=== PATIENT | male | born 2000 | race Caucasian/White ===

== ENCOUNTER 2022-10-31 21:19 | Emergency (ER) | payer OTHER, MEDICAID, SELFPAY ==
[2022-10-31 21:29] VITALS: BP 125/59; PULSE 67; RESP 16; TEMP 36.9; O2SAT 98; BMI 19.0
--- NOTE | 2022-10-31 22:03 | ED.BACK ---
HPI - Back Pain/Injury General Chief Complaint: Back Pain/Injury Stated Complaint: Neck and shoulder pain Time Seen by Provider: 10/31/22 22:03 Source: patient Mode of arrival: ambulatory Limitations: no limitations History of Present Illness HPI Narrative: 22-year-old male presents with a right neck and upper back muscle spasming after over reaching. Patient states that he has had intermittent muscle spasming to the right upper back over the past month. He does not report any traumatic injury or any significant physical exertion. MD elicited complaint: other (Muscle spasm) Onset (ago): day(s) (1) Timing: constant Severity: moderate Similar Symptoms Previously: Yes Quality: aching, spasming and throbbing Location: right upper back Radiation: neck Exacerbating factors: movement Relieving factors: other (Massage) Context: turning/twisting Associated symptoms: denies other symptoms Treatments prior to arrival: NSAIDS Work related injury: No Related Data Previous Rx's Medication Instructions Recorded cyclobenzaprine 10 mg tablet 10 mg PO TID PRN muscle spasm #10 10/31/22 tabs Allergies Allergy/AdvReac Type Severity Reaction Status Date / Time No Known Allergies Allergy Verified 10/31/22 22:14 Review of Systems Review of Systems: Constitutional: No Fever, No Chills Cardiovascular: No Chest Pain, No SOB Respiratory: No Cough, No Dyspnea Gastrointestinal: No Nausea, No Vomiting, No Diarrhea, No abdominal Pain Genitourinary: No Dysuria, No Hematuria Musculoskeletal: positive neck and upper back muscular spasming and pain, No Myalgias, No Joint Swelling Skin: No Skin lacerations, No rash Neuro: No Weakness, No Numbness, No Paresthesias, No Dizziness, No Headache Yes all other systems are reviewed and are negative [facility] Past Medical History Attestation statement: The following information was validated with the patient. Source: old records reviewed Social History Social History Advance Directives: No Advance Directives Information Provided: No Physical Exam Vital Signs: Vital Signs: Last Vital Signs Temp 98.4 F 10/31/22 21:29 Pulse 67 10/31/22 21:29 Resp 16 10/31/22 21:29 BP 125/59 L 10/31/22 21:29 Pulse Ox 98 10/31/22 21:29 O2 Del Method 10/31/22 21:29 BMI result Body Mass Index 19.0 Appearance: Alert. Oriented X3. No acute distress. Eyes: Pupils equal, round and reactive to light. ENT: Pharynx normal. Neck: Normal inspection. Neck supple. Palpable spasm to the trapezius and latissimus Dorsi. No vertebral tenderness or step-offs. Full range of motion to the neck. CVS: Normal heart rate and rhythm. Pulses normal. Respiratory: No respiratory distress. Breath sounds normal. Abdomen: Soft and nontender. Skin: Skin warm and dry. Normal skin color. Normal skin turgor. Extremities: No lower extremity edema. Full range of motion to all extremities. Neuro: No motor deficit. No sensory deficit. Cranial nerves 2-12 intact. Course Course Course Narrative: 22-year-old male presents with muscle spasming to the upper neck, and back. Has had similar episodes in the past. This spasming started when he was over reaching fixing his bed sheets. He has had spasming to the right upper back and neck in the past. He has been taking ibuprofen mild effect. Patient appears nontoxic, afebrile. Palpable spasming noted to the latissimus Rivera and trapezius on the right side. Patient does have full range of motion to all digits, extremities, and neck. Brisk capillary refill and equal pulses. Abdomen is soft nontender, chest wall no tenderness to palpation. Will treat with cyclobenzaprine. I did suggest supportive measures such as using a foam roller, myofascial release, massage therapy, and physical therapy. I did explain that these kinds of muscular skeletal spasming may take time to heal and may require multiple modalities for treatment. Patient verbalized understanding of and agrees to plan of care discharge home. Verbalized understanding of signs and symptoms indicating need for emergent intervention. Medications Administered Discontinued Medications Generic Name Dose Route Start Last Admin Trade Name Freq PRN Reason Stop Dose Admin Cyclobenzaprine HCl 10 mg 10/31/22 22:14 10/31/22 22:31 Cyclobenzaprine Hcl 10 Mg Tablet PO 10/31/22 22:15 10 mg ONCE ONE Administration Medical Decision Making Differential Diagnosis Differential Diagnoses: The differential diagnosis associated with the presentation includes Muscular muscle spasm Discharge Plan Discharge Clinical Impression: Muscle strain, Muscle spasm Patient Disposition: Home, Self-Care Instructions: Muscle Spasm (ED) Additional Instructions: You were evaluated for right trapezius muscle spasm. Please take cyclobenzaprine as needed for muscle spasms. This medication is a muscle relaxer, can delay reaction time, increased risk for falls, and cause drowsiness. Do not drive or operate machinery while taking this medication. Do not take this medication at the same time as Motrin. Alternate Tylenol 650 mg every 6 hours and Motrin 600 mg every 6 hours as needed for pain and fever management. Consider taking these medications 3 hours apart so you have pain and fever management every 3 hours. Write down what time you take these medications to prevent accidental overdose. If you notice any black or tarry stools stop Taking Motrin and present to the emergency department for evaluation. This is an indication of gastric bleeding. Use a foam roller, tennis ball, and or massage therapy to help release the muscle spasm. This will be painful, and will take time to resolve. May consider following up with primary care physician for physical therapy referral if symptoms continue to persist. Thank you for choosing this emergency department for evaluation. Please follow-up with primary care physician as needed. Return to the emergency department for any new, concerning, or worsening symptoms. Prescriptions: New cyclobenzaprine 10 mg tablet 10 mg PO TID PRN (Reason: muscle spasm) Qty: 10 0RF Stand Alone Forms: Work/School Release Interventions: ED Discharge Assessment Last Done: 10/31/22 22:34 Discharge Date/Time: 10/31/22 22:35
[2022-10-31] MEDS: Cyclobenzaprine HCl 10 MG TABLET PO (22:31)
== END 2022-10-31 22:35 | disposition home or self-care (01) ==
PROVIDERS: Emergency Provider Internal Medicine
DX: M62.830 Muscle spasm of back (principal); S16.1XXA Strain of muscle, fascia and tendon at neck level, initial encounter; X50.1XXA Overexertion from prolonged static or awkward postures, initial encounter; Y93.84 Activity, sleeping; Y92.013 Bedroom of single-family (private) house as the place of occurrence of the external cause; Y99.9 Unspecified external cause status
CPT/HCPCS: 99283

== ENCOUNTER 2024-10-06 11:28 | Outpatient (REF) | payer OTHER, SELFPAY ==
[2024-10-06 18:56] LABS: CT PCR DETECTED (Not Detect.); NG PCR NOT DETECTED (Not Detect.)
== END 2024-10-06 11:29 | disposition home or self-care (01) ==
LOC: HO.LNP 11:28
PROVIDERS: PCP Nurse Practitioner Family; Visit Provider Physician Assistant
DX: Z71.1 Person with feared health complaint in whom no diagnosis is made (principal); R36.0 Urethral discharge without blood
CPT/HCPCS: 87491; 87591; 99212

== ENCOUNTER 2024-10-06 11:28 | Outpatient (AMB) | payer OTHER, SELFPAY ==
--- NOTE | 2024-10-06 11:47 | MHC.OFFWIV ---
Intake Vital Signs 10/06/24 11:49 Height 5 ft 8 in Weight 125 lb BMI 19.0 BP 118/70 Blood Pressure Location Lt brachial Position Sitting Pulse 75 Pulse Source Pulse Oximeter Temp 97.6 F Temp Source Temporal Artery Scan Pulse Oximetry (%) 98 Oxygen Delivery Method Room Air Intake Visit Reasons: EP ?STD Intake Note: Pt presents to the office today for questions of an STD. Pt states when he wakes up in the morning he notices a greenish discharge from his penis. Pt states this has been going on for a little over a week. Pt denies any urinary symptoms. Pt states he started dating a girl 3 months ago. Patient Tobacco Use Status: Never used Tobacco Allergies No Known Allergies Allergy (Verified 10/06/24 11:50) HPI HPI Comments History of Present Illness Details History of Present Illness The patient is a 23-year-old male presenting with penile discharge. The discharge started a little over a week ago and appears to be greenish in color, resembling pus. The patient denies any associated pain with urination, lower back pain, hematuria, fever, or any systemic symptoms. He has been sexually active with a new partner for the past three months, but the symptoms began just over a week ago. The patient has not experienced white or chunky discharge typical of yeast infections but reports wearing tight underwear which may have caused some irritation. No prior treatment has been administered for this condition. There are no observed rashes that could be indicative of either syphilis or other infections. Physical Exam General: Cooperative, healthy appearing, comfortable, no acute distress and well developed Orientation: Patient oriented x3 Limitations: No limitations Head: Normal to inspection Ears: Hearing grossly normal bilaterally Nose: Normal external nose present Face and sinus: Normal facial exam Eyes: Appearance normal, both eyes and all related structures Neck: Normal visual inspection and Yes full ROM Respiratory: Normal respiratory effort and able to speak in complete sentences. Skin: No rashes or lesions noted Neuro: Patient oriented x3 Extremities: Normal to inspection [facility] Social History Housing: House Patient Tobacco Use Status: Never used Tobacco e-Cigarette/Vaping Use: Currently Using Second Hand Smoke Exposure: No service: No Current occupational status: employed Current occupation: [email or web address] Current occupational exposures/hazards: Yes Cognitive needs: No Hearing needs: No Vision needs: No Review of Systems Const All systems reviewed & are unremarkable except as noted in HPI and below Physical Exam Vital Signs: Last Vital Signs Temp 97.6 F 10/06/24 11:49 Pulse 75 10/06/24 11:49 BP 118/70 10/06/24 11:49 Pulse Ox 98 10/06/24 11:49 Oxygen Delivery Method Room Air 10/06/24 11:49 BMI result Body Mass Index 19.0 Assessment & Plan Assessment & Plan (1) Concern about STI in male without diagnosis: Code(s): Z71.1 - Person with feared health complaint in whom no diagnosis is made Plan: Plan - Test for Neisseria gonorrhoeae and Chlamydia trachomatis. A urine sample has been collected for testing. - Await test results to guide further management. - If tests are negative and symptoms persist, consider further testing including syphilis. - Discuss findings with primary care provider for potential follow-up and additional testing if necessary. Patient was informed and verbally consented to the use of an ambient scribe for clinic note documentation during this visit. (2) Abnormal penile discharge, without blood: Code(s): R36.0 - Urethral discharge without blood Plan: as above Coding Level of Care Code Est Pt Level 3 (75555) Diagnoses Concern about STI in male without diagnosis Z71.1 Abnormal penile discharge, without blood R36.0
[2024-10-06 11:49] VITALS: BP 118/70; PULSE 75; TEMP 36.4; O2SAT 98; BMI 19.0
== END 2024-10-06 12:25 | disposition home or self-care (01) ==
PROVIDERS: PCP Nurse Practitioner Family; Visit Provider Physician Assistant
DX: Z71.1 Person with feared health complaint in whom no diagnosis is made (principal); R36.0 Urethral discharge without blood

== ENCOUNTER 2024-10-21 08:23 | Outpatient (AMB) | payer OTHER, SELFPAY ==
[2024-10-21 08:46] VITALS: BP 118/74; PULSE 73; O2SAT 98; BMI 18.7
--- NOTE | 2024-10-21 08:46 | AM.OFFWIN_ITS ---
Intake Vital Signs 10/21/24 08:46 Height 5 ft 8 in Weight 123 lb 4 oz BMI 18.7 BP 118/74 Blood Pressure Location Lt brachial Position Sitting Pulse 73 Pulse Source Pulse Oximeter Pulse Oximetry (%) 98 Oxygen Delivery Method Room Air Intake Visit Reasons: EP-f/up to be re tested from 10/06/24-std Patient Tobacco Use Status: Never used Tobacco Allergies No Known Allergies Allergy (Verified 10/21/24 08:49) Medication List - Last Reconciled 10/21/24 by Jacob Landeros MD No Known Home Meds Do you need a note to return to daycare/school/sports/work: No HPI EP-f/up to be re tested from 10/06/24-std HPI Details Chief Complaint The patient reports a recent chlamydia infection and is concerned about potentia l syphilis exposure. History of Present Illness - The patient is a 24-year-old male pres enting for follow-up and comprehensive testing after a recent chlamydia infection. - The patient was treated with doxycycli ne and reports that the discharge has resolved. - A rash developed on the ankle, initial ly perceived as a bug bite, leading to concerns about syphilis. - The patient seeks testing for STIs, in cluding HIV, syphilis, and herpes, for thorough evaluation. - Urine samples taken, and additional b lood tests are planned during this visit. 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 The patient will provide a urine sample and undergo lab tests for comprehensive STI screening, including HIV, syphilis, and herpes, ensuring thorough investigation into his concerns. The goal is to confirm the resolution of chlamydia and address the concern of syphilis exposure thoroughly. [facility] Social History Housing: House Patient Tobacco Use Status: Never used Tobacco e-Cigarette/Vaping Use: Currently Using Second Hand Smoke Exposure: No service: No Current occupational status: employed Current occupation: [employer] Current occupational exposures/hazards: Yes Cognitive needs: No Hearing needs: No Vision needs: No Review of Systems Const All systems reviewed & are unremarkable except as noted in HPI and below Physical Exam Vital Signs: Last Vital Signs Pulse 73 10/21/24 08:46 BP 118/74 10/21/24 08:46 Pulse Ox 98 10/21/24 08:46 Oxygen Delivery Method Room Air 10/21/24 08:46 BMI result Body Mass Index 18.7 Const General: no acute distress Orientation/consciousness: patient oriented x3 Eyes General: appearance normal, both eyes and all related structures Resp Effort & Inspection: normal respiratory effort and able to speak in complete sentences Neuro General: patient oriented x3 Psych Mental Status: mental status grossly normal Assessment & Plan Assessment & Plan (1) Abnormal penile discharge, without blood: Code(s): R36.0 - Urethral discharge without blood (2) STD exposure: Code(s): Z20.2 - Contact with and (suspected) exposure to infections with a predominantly sexual mode of transmission Plan Chief Complaint The patient reports a recent chlamydia infection and is concerned about potential syphilis exposure. History of Present Illness - The patient is a 24-year-old male presenting for follow-up and comprehensive testing after a recent chlamydia infection. - The patient was treated with doxycycline and reports that the discharge has resolved. - A rash developed on the ankle, initially perceived as a bug bite, leading to concerns about syphilis. - The patient seeks testing for STIs, including HIV, syphilis, and herpes, for thorough evaluation. - Urine samples taken, and additional blood tests are planned during this visit. 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 The patient will provide a urine sample and undergo lab tests for comprehensive STI screening, including HIV, syphilis, and herpes, ensuring thorough investigation into his concerns. The goal is to confirm the resolution of chlamydia and address the concern of syphilis exposure thoroughly. Orders: Orders CT NG by PCR Today R36.0 - Urethral discharge without blood Syphilis Screen Today R36.0 - Urethral discharge without blood, Z20.2 - Contact with and (suspected) exposure to infections with a predominantly sexual mode of transmission Hepatitis C Antibody Today R36.0 - Urethral discharge without blood, Z20.2 - Contact with and (suspected) exposure to infections with a predominantly sexual mode of transmission HIV Ab/Ag Today R36.0 - Urethral discharge without blood, Z20.2 - Contact with and (suspected) exposure to infections with a predominantly sexual mode of transmission Herpes Simplex Virus Ab IgG Today R36.0 - Urethral discharge without blood, Z20.2 - Contact with and (suspected) exposure to infections with a predominantly sexual mode of transmission Hepatitis B Surface Antibody Today R36.0 - Urethral discharge without blood, Z20.2 - Contact with and (suspected) exposure to infections with a predominantly sexual mode of transmission Coding Level of Care Code Est Pt Level 3 (06236) Diagnoses Abnormal penile discharge, without blood R36.0 STD exposure Z20.2
== END 2024-10-21 09:11 | disposition home or self-care (01) ==
PROVIDERS: PCP Nurse Practitioner Family; Visit Provider Internal Medicine
DX: R36.0 Urethral discharge without blood (principal); Z20.2 Contact with and (suspected) exposure to infections with a predominantly sexual mode of transmission

== ENCOUNTER 2024-10-21 08:23 | Outpatient (REF) | payer OTHER, SELFPAY ==
[2024-10-21 12:29] LABS: CT PCR NOT DETECTED (Not Detect.); NG PCR NOT DETECTED (Not Detect.)
[2024-10-22 03:58] LABS: Syphilis Screen Nonreactive (Nonreactive)
[2024-10-22 04:14] LABS: HIV AB/AG Nonreactive (Nonreactive); HIV Num 1 0.06 S/CO (0.00-0.99); ~Hepatitis B Surface Antibody NONREACTIVE (Nonreactive); ~Hepatitis C Antibody Nonreactive (Nonreactive)
[2024-10-23 18:18] LABS: Herpes Simplex Type 1 IgG <0.90 index; Herpes Simplex Type 2 IgG <0.90 index
== END 2024-10-21 08:24 | disposition home or self-care (01) ==
LOC: HO.HMGCLDS 08:23
PROVIDERS: PCP Nurse Practitioner Family; Visit Provider Internal Medicine
DX: R36.0 Urethral discharge without blood (principal); R21 Rash and other nonspecific skin eruption; Z20.2 Contact with and (suspected) exposure to infections with a predominantly sexual mode of transmission
CPT/HCPCS: 36415; 86695; 86696; 86706; 86780; 86803; 87389; 87491; 87591; 99212

== ENCOUNTER 2024-12-08 12:46 | Outpatient (AMB) | payer OTHER, SELFPAY ==
--- OUTSIDE RECORDS SUMMARY | 2024-12-08 12:49 | XMS_ITS | Encounter Summary ---
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 Phone Unavailable Primary Care Provider Unavailabl e Encounter Details Date Type Department Care Team (Late st Contact Info) Description 02/13/2014 Documentation [facility] Family Medicine [address] [place] [address] Family Medicine, Physician [place] [address] Social History Tobacco Use Types Packs/Day Years Used Date Smoking Tobacco: Never Assessed Sex and Gender Information Value Date Recorded Sex Assigned at Not on file Legal Sex Male 5:15 PM EDT Gender Identity Not on file Sexual Orientation Not on file documented as of this encounter Plan of Treatment Not on file documented as of this encounter Visit Diagnoses Not on filedocumented in this encounter
--- OUTSIDE RECORDS SUMMARY | 2024-12-08 12:49 | XMS_ITS | Clinical Summary ---
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 Phone Unavailable Primary Care Provider Unavailabl e Allergies No known active allergies Medications No known medications Social History Tobacco Use Types Packs/Day Years Used Date Smoking Tobacco: Some Days Pipe Passive Smoke Exposure: Never Smokeless Tobacco: Never Tobacco Cessation:Ready to Q uit: Not Asked; Counseling Given: Not Answered Alcohol Use Standard Drinks/Week Comments Never 0 (1 standard drink = 0.6 oz pur e alcohol) Sex and Gender Information Value Date Recorded Sex Assigned at Male 01/16/2023 7:05 AM EDT Legal Sex Male 5:37 PM EDT Gender Identity Male 01/16/2023 7:05 AM EDT Sexual Orientation Don't know 01/16/2023 7: 05 AM EDT Plan of Treatment Health Maintenance Due Date Last Done Comments Chlamydia and Gonorrhea Screening 2002 Depression Screening 2002 HIV Screening 2002 SDOH Screening 2002 Alcohol/Substance Use Screening 2014 Family Planning (PISQ) 2017 HPV Vaccines (1 - Male 3-dose series) 2017 Hepatitis C Screening 2020 Pneumococcal Vaccine: Pediatrics (0 to 5 Years) and At-Risk Patients (6 to 49) Years) (1 of 2 - PCV) 2021 01/13/2005, 05/01/2003, 03/09/2003, Additional history exists Tobacco Screening 01/17/2024 01/16/2023 Dental X-Ray: Bitewings 01/18/2024 01/17/20 23, 10/24/2021, 11/14/2018, Additional history exists Dental Oral Exam 01/24/2024 07/24/2023, , 05/02/2022, Additional history exists Dental Prophylaxis 01/24/2024 07/24/2023, 0 01/16/2023, 05/02/2022, Additional history exists COVID-19 Vaccine ( - 2023- season) 2024 Influenza Vaccine (#1) 2024 11/22/2005, 2003 DTaP/Tdap/Td Vaccines (7 - Td or Tdap) 06/22/2025 06/22/2015, 12/07/2006, 05/09/2004, Additional history exists Dental X-Ray: Full Mouth 08/13/2027 08/12/2024, 12/21 Zoster Vaccines (1 of 2) 2052 RSV Patients and Patients Aged 60 years or older (1 - 1-dose 75+ series) 2077 Hepatitis B Vaccines Completed 07/31/2003, 05/01/2003, 2002 HIB Vaccines Completed 02/24/2004, 04/21, 03/09/2003, Additional history exists IPV Vaccines Completed 12/07/2006, 07/22, 03/09/2003, Additional history exists Hepatitis A Vaccines Aged Out No long er eligible based on patient's age to complete this topic Meningococcal Vaccine Aged Out No bruce igor eligible based on patient's age to complete this topic RSV under 20 months Aged Out No longe r eligible based on patient's age to complete this topic Rotavirus Vaccines Aged Out No longer eligible based on patient's age to complete this topic Procedures Procedure Name Priority Date/Time Associated Diagnosis Comments PANORAMIC RADIOGRAPHIC IMAGE Routine 08/12/2024 2:00 PM EDT Full PROPHYLAXIS - ADULT Routine 023 12:00 PM EDT PERIODIC ORAL EVALUATION - ESTABLISHED PATIENT Routine 07/24/2023 12:00 PM EDT INTRAORAL - COMPLETE SERIES OF RADIOGRAPHIC IMAGES Routine 01/16/2023 10:00 AM EDT Encounter for dental examination from Last 3 Months or Most Recently Relevant to Health Maintenance Insurance DENTAL - HSN FULL (MEDICAID)
--- OUTSIDE RECORDS SUMMARY | 2024-12-08 12:49 | XMS_ITS | Clinical Summary ---
Author Organization [facility] Address [address] [place] [address] Phone Care Team Providers Care Counter Cutter Name Role Phone Unavailable Primary Care Provider Unavailabl e Allergies No known active allergies Medications No known medications Active Problems No known active problems Immunizations Immunization Administration Dates Next Due DTaP 5 12/07/2006, 4,05/01/2003,03/09/2003 ,2002 Hep B, ped/adol 07/31/2003,05/01/2003,2002 Hib (PRP-T) 02/24/2004,05/01/2003,03/09/2003 ,2002 IPV 12/07/2006,07/31/2003,03/09/2003 ,2002 Influenza, injectable, trivalent 11/22/2005,10/24 MMR 11/28/2003 MMRV 12/07/2006 Pneumococcal Conjugate 01/13/2005,05/01/2003,,2002 Tdap 06/22/2015 Varicella 11/28/2003 Family History Medical History Relation Name Comments Melanoma Mother Relation Name Status Comments Father Father: allergi es Maternal Grandmother Materna l grandmother: Fibromyalgia Mother Mother: Asthma Paternal Grandmother Paterna l grandmother: , Cancer -lung Social History Tobacco Use Types Packs/Day Years Used Date Smoking Tobacco: Never Smokeless Tobacco: Never Hunger/Food Answer Date Recorded In the last 12 months, did y ou or your family ever eat less than you felt you should because there wasn't enough money for food? No 11/16/2020 Stable Housing Answer Date Recorded Are you worried that in the next 2 months you may not have stable housing? No 11/16/2020 Transportation Concerns Answer Date Rec orded In the last 12 months, have you or your family ever had to go without healthcare because you didn't have a way to get there? No 11/16/2020 Hazards in Home Answer Date Recorded Think about the place you li ve. Do you have problems with any of the following? Pests (mice or roaches), mold, no/not working smoke detectors, water leaks, no window guards. Yes 2020 Financing Utilities Answer Date Recorde d In the last 12 months, has t he electric, gas, oil, or water company threatened to shut off your services in your home? No 11/16/2020 Safety at Home Answer Date Recorded Are you or your family worried about feeling saf e in your home? No 11/16/2020 Outside Support Answer Date Recorded Do you feel that you need mo re support from other people or programs to help you care for yourself or your family? No 11/16/2020 Understanding Health Concerns Answer Da te Recorded Do you need help understandi ng your or your child's healthcare needs (diagnosis, medications, plan, etc.)? No 11/16/2020 Financing Health Concerns Answer Date R ecorded In the last 12 months, was t here a time when your child needed to see a doctor or get medications or supplies but could not because of cost? No 11/16/2020 Missing School or Work Answer Date Filipe rded Did you or your child miss s chool or work because of a health problem that could have been avoided? No 11/16/2020 Sex and Gender Information Value Date Recorded Sex Assigned at Not on file Legal Sex Male 5:15 PM EDT Gender Identity Not on file Sexual Orientation Not on file Last Filed Vital Signs Vital Sign Reading Time Taken Comments Blood Pressure 109/66 11/16/2020 2:40 PM EST Pulse 56 11/16/2020 2:40 PM EST Temperature 36.4 ??C (97.5 ??F) 11/16/2020 2:40 PM ES T Respiratory Rate - - Oxygen Saturation - - Inhaled Oxygen Concentration - - Weight 54.4 kg (120 lb) 11/16/2020 2:40 PM EST Height 168.9 cm (5' 6.5 ) 11/16/2020 2:40 PM EST Body Mass Index 19.08 11/16/2020 2:40 PM EST Plan of Treatment Health Maintenance Due Date Last Done Comments HPV Vaccines (1 - Male 3-dose series) 2017 Men B Vaccine (1 of 2 - Standard) 2018 Influenza Vaccines (#1) 2024 11/22/2005, 11/20 COVID-19 Vaccine ( - season) 2024 DTaP,Tdap,and Td Vaccines (7 - Td or Tdap) 06/22/2025 06/22/2015, 12/07/2006, 05/09/2004, Additional history exists Hepatitis B Vaccines Completed 07/31/2003, 05/01/2003, 2002 HIB Vaccines Completed 02/24/2004, 04/21, 03/09/2003, Additional history exists Pneumococcal Vaccine Completed 01/13/2005, 05/01/2003, 03/09/2003, Additional history exists IPV Vaccines Completed 12/07/2006, 07/22, 03/09/2003, Additional history exists MMR Vaccines Completed 12/07/2006, 11/28/2003 Varicella Vaccines Completed 12/07/2006, 11/28/2003 Hepatitis A Vaccines Aged Out No long er eligible based on patient's age to complete this topic Meningococcal Vaccine Aged Out No bruce igor eligible based on patient's age to complete this topic Insurance [facility] NON PCC
--- OUTSIDE RECORDS SUMMARY | 2024-12-08 12:49 | XMS_ITS | Encounter Summary ---
Author Organization [facility] Address [address] [place] [phone] Phone Care Team Providers Care Jewelry Coater Name Role Phone Unavailable Primary Care Provider Unavailabl e Encounter Details Date Type Department Care Team (Late st Contact Info) Description 06/07/2017 Conversion Encounter [facility] - [address] [address] Social History Tobacco Use Types Packs/Day Years [...]
--- OUTSIDE RECORDS SUMMARY | 2024-12-08 12:49 | XMS_ITS | Encounter Summary ---
Author Organization [email or web address] Address [address] [place] [address] [address] [place] [address] Care Team Providers Care Hard Rock Miner Name Role Phone Unavailable Primary Care Provider Unavailabl e Encounter Details Date Type Department Care Team (Latest Contact Info) Description 10/24/2021 Abstract [facility] CONVERSIONS Dental, Provider, DDS Social History Tobacco Use Types Packs/Day Years Used Date Smoking Tobacco: Never Assessed Sex and Gender Information Value Date Recorded Sex Assigned at Male 01/16/2023 7:05 AM EDT Legal Sex Male 5:37 PM EDT Gender Identity Male 01/16/2023 7:05 AM EDT Sexual Orientation Don't know 01/16/2023 7: 05 AM EDT documented as of this encounter Plan of Treatment Not on file documented as of this encounter Visit Diagnoses Not on filedocumented in this encounter
--- NOTE | 2024-12-08 13:04 | AM.OFFWIN_ITS ---
Intake Vital Signs 3 12/08/24 13:05 Weight 125 lb BP 110/80 Blood Pressure Location Rt brachial Position Sitting Pulse 73 Pulse Source Pulse Oximeter Pulse Oximetry (%) 99 Oxygen Delivery Method Room Air Intake Visit Reasons: EP Spot/mole on leg/concerns Intake Note: Patient here for spot on right leg that has been present for 2 months. Pt has a family hx of melanoma. Patient Tobacco Use Status: Never used Tobacco Allergies No Known Allergies Allergy (Verified 12/08/24 13:05) Do you need a note to return to daycare/school/sports/work: No HPI HPI Comments 2 History of Present Illness0 Details 24 y/o male patient who presents to the walk in clinic with c/o small lesion right lower extremity x 2 months now. Describes the lesion as very itchy and sometimes TTP. Denies systemic symptoms at this time. He does report family h/o Melanoma and he is worried this could be it. [facility] Medical History (Updated 12/08/24 @ 13:31 by Dana Nash NP) Skin lesion of right leg Social History Housing: House Patient Tobacco Use Status: Never used Tobacco e-Cigarette/Vaping Use: Currently Using Second Hand Smoke Exposure: No service: No Current occupational status: employed Current occupation: [employer] Current occupational exposures/hazards: Yes Cognitive needs: No Hearing needs: No Vision needs: No Review of Systems Const All systems reviewed & are unremarkable except as noted in HPI and below Physical Exam Vital Signs: Last Vital Signs Pulse 73 12/08/24 13:05 BP 110/80 12/08/24 13:05 Pulse Ox 99 12/08/24 13:05 Oxygen Delivery Method Room Air 12/08/24 13:05 Const General: cooperative and no acute distress Orientation/consciousness: patient oriented x3 Neuro General: patient oriented x3, gait normal and moves all extremities Extrem Right lower extremity: lower leg Ankle/foot/toe images: 2 1. Erythematous Lesion 0.5 inch right leg, flat round. Psych Speech and movement: Normal speech and movement present Assessment & Plan Assessment & Plan (1) Skin lesion of right leg: Code(s): L98.9 - Disorder of the skin and subcutaneous tissue, unspecified Plan: Placed referral to Dermatology. Ordered low dose Steroid Ointment. F/U with PCP. Orders: Referrals 2 Dermatology Referral L98.9 - Disorder of the skin and subcutaneous tissue, unspecified Medications: New 2 triamcinolone acetonide 0.1% 1 appl topical BID 15 grams 0RF L98.9 - Disorder of the skin and subcutaneous tissue, unspecified Coding Level of Care Code Est Pt Level 4 (29849) Diagnoses Skin lesion of right leg L98.9 Time Spent (min) 20
[2024-12-08 13:05] VITALS: BP 110/80; PULSE 73; O2SAT 99
== END 2024-12-08 13:40 | disposition home or self-care (01) ==
PROVIDERS: PCP Nurse Practitioner Family; Visit Provider Nurse Practitioner Family
DX: L98.9 Disorder of the skin and subcutaneous tissue, unspecified (principal)

== ENCOUNTER → 2024-12-08 12:46 | Outpatient (BNVA) | payer OTHER, SELFPAY | PROVIDERS: PCP Nurse Practitioner Family | DX: L98.9 Disorder of the skin and subcutaneous tissue, unspecified (principal) | CPT/HCPCS: 99212 ==

== ENCOUNTER 2024-12-29 14:54 | Outpatient (AMB) | payer OTHER, SELFPAY ==
--- NOTE | 2024-12-29 15:02 | MHC.PC.OV ---
Vital Signs 12/29/24 15:08 Height 5 ft 8 in Weight 126 lb 6 oz BMI 19.2 BP 110/62 Blood Pressure Location Lt brachial Position Sitting Pulse 82 Pulse Source Pulse Oximeter Temp 97.9 F Temp Source Oral Pulse Oximetry (%) 98 Intake Visit Reasons: Annual PE Photographic Developer And Printer Required: No Accompanied by: Self / Same As Patient Allergies No Known Allergies Allergy (Verified 12/29/24 15:25) Medication List - Last Reconciled 12/29/24 by SUZANNE White No Known Home Meds Tobacco use date assessed: 12/29/24 Dental Screening Dental Screen Date: 12/29/24 Did you have a dental visit in the last 12 months?: Yes Did you have a dental problem in the last 6 months where you did not have access to dental care?: No Was dental information given to patient?: Patient has dentist HPI Annual PE HPI Details History of Present Illness The patient is a 24-year-old male presenting with abdominal pain and a skin lesion. The abdominal pain is ongoing, without accompanying symptoms like chest pain or gastrointestinal disturbances such as blood in stool or diarrhea. He also denies urinary symptoms. The patient has a history of anxiety and depression, though he denies any current suicidal or homicidal ideations, expressing a desire to see a therapist. His skin lesion, located on the medial ankle, is characterized as a small, darker-colored macular feature, which does not itch or exhibit surrounding erythema. He requires further evaluation from a graphic design teacher. Health Maintenance - Behavioral health consultation with a therapist for anxiety and depression. - Referral to a graphic design teacher for evaluation of skin lesion. Social History - Desires to see a therapist for mental health support regarding anxiety and depression. Review of Systems - Gastrointestinal: Denies chest pain, blood in stool, constipation, diarrhea. - Genitourinary: Denies urinary symptoms. -denies any sob, denies any si or hi Physical Exam General: Cooperative, healthy appearing, comfortable, no acute distress and well developed Orientation: Patient oriented x3 Limitations: No limitations Head: Normal to inspection Ears: Hearing grossly normal bilaterally Nose: Normal external nose present Face and sinus: Normal facial exam Eyes: Appearance normal, both eyes and all related structures Neck: Normal visual inspection and Yes full ROM Respiratory: Normal respiratory effort and able to speak in complete sentences. Clear to auscultation bilaterally Cardiovascular: Regular rate and rhythm. Normal S1 and S2 GI: Normal to inspection. Soft to palpation and nontender Skin: Small, more macular, darker colored lesion on the medial ankle region, does not itch, no surrounding erythema, singular Neuro: Patient oriented x3 Extremities: Normal to inspection Results Plan An evaluation by a behavioral health specialist is planned to address anxiety and depression, aligning with the patient's wish to speak with a therapist. The abdominal pain requires further observation due to the absence of critical accompanying symptoms. The skin lesion warrants a dermatological referral for in-depth investigation. Future therapy sessions may aid in the management of his mental health conditions. Discussion Notes I discussed with the patient the importance of addressing his mental health concerns, affirming his interest in therapy. Referral to a behavioral health professional was considered a significant step forward. We discussed the singular macular skin lesion, emphasizing the necessity of a dermatological evaluation to ascertain its nature. Further, although abdominal pain persists without significant gastrointestinal symptoms, I underscored the need for vigilance in monitoring his condition. Patient Instructions - Follow up with behavioral health services for therapy. - Watch for changes in the abdominal pain or appearance of symptoms like blood in stool. - Attend the scheduled dermatology consultation for skin lesion evaluation. - Contact our office if new or worsening symptoms arise. [facility] Medical History Skin lesion of right leg Surgical History No pertinent past surgical history Social History Housing: House Patient Tobacco Use Status: Never used Tobacco e-Cigarette/Vaping Use: Currently Using Second Hand Smoke Exposure: No service: No Current occupational status: employed Current occupation: [employer] Current occupational exposures/hazards: Yes Cognitive needs: No Hearing needs: No Vision needs: No Questionnaire PHQ-9 Over the last 2 weeks, how often have you been bothered by any of the following problems? 1. Little interest or pleasure in doing things: more than half the days 2. Feeling down, depressed, or hopeless: several days 3. Trouble falling or staying asleep, or sleeping too much: more than half the days 4. Feeling tired or having little energy: not at all 5. Poor appetite or overeating: nearly every day 6. Feeling bad about yourself - or that you are a failure or have let yourself or your family down: nearly every day 7. Trouble concentrating on things, such as reading the newspaper or watching television: not at all 8. Moving or speaking so slowly that other people could have noticed. Or the opposite - being so fidgety or restless that you have been moving around a lot more than usual: not at all 9. Thoughts that you would be better off or of hurting yourself in some way: not at all Total score: 11 Depression Screening Interpretation: Positive ( denies any si or hi, will have BH speak with pt.) Depression Screening Follow-up: Existing condition Depression Screening Done: Yes 09435 - PHQ-9 Billing: Yes Source: Developed by Drs. Tevin Bee, Esther Phillip, Daniel Carl and colleagues, with an educational ginette from [employer]. Thrive Questionnaire Date Thrive assessed: 12/29/24 I am a: Patient What is your living situation today?: I have a steady place to live Within the past 12 months, did the food you bought not last and you didn't have the money to get more?: Never true Within the past 12 months, did you worry whether your food would run out before you got money to buy more?: Never true Do you have trouble paying for medicines?: No Do you have trouble getting transportation to medical appointments?: No Do you have trouble paying your heating and electricity bill?: No Do you have trouble taking care of your child, family member or friend?: No Do you have trouble with day-to-day activities such as bathing, preparing meals, shopping, managing finances, etc.?: No Are you currently unemployed and looking for a job?: No Are you interested in more education?: No Please select the resources that you would like help with: None Currently or been in a relationship where the following occur: No concerns reported THRIVE Score: 0 AUDIT C Alcohol Use Questionnaire (AUDIT-C) 1. How often do you have a drink containing alcohol?: 2-3 times a week 2. How many drinks containing alcohol do you have on a typical day when you are drinking?: 3 or 4 3. How often do you have six or more drinks on one occasion?: Monthly Total Score: 6 Score Reviewed/Action Taken: Yes MARIO ALBERTO-7 AMB Questionnaire MARIO ALBERTO-7 Date MARIO ALBERTO - 7 assessed: 12/29/24 Feeling nervous, anxious, or on edge: 2 = More than half the days Not being able to stop or control worryin = More than half the days Worrying too much about different things: 3 = Nearly every day Trouble relaxin = Several days Being so restless that it is hard to sit still: 0 = Not at all Becoming easily annoyed or irritable: 1 = Several days Feeling afraid as if something awful might happen: 1 = Several days Total MARIO ALBERTO-7 score (0-4 normal; 5-9 mild; 10-14 moderate; 15-21 severe): 10 Source: Developed by Drs. Tevin Bee, Esther Phillip, Daniel Carl and colleagues, with an educational ginette from [employer]. MARIO ALBERTO-7 Assessment Billing MARIO ALBERTO-7 Assessment Tool: MARIO ALBERTO-7 Assessment 16909 (denies any si or hi, will have bH speak with pt) Physical exam (Primary Care) Vital Signs: Last Vital Signs Temp 97.9 F 12/29/24 15:08 Pulse 82 12/29/24 15:08 BP 110/62 12/29/24 15:08 Pulse Ox 98 12/29/24 15:08 BMI result Body Mass Index 19.2 Tobacco/Smoking Status: Tobacco use Status Tobacco use date assessed 12/29/24 12/29/24 15:10 Patient Tobacco Use Status Never used Tobacco 12/29/24 15:04 e-Cigarette/Vaping Use Currently Using 12/29/24 15:04 PHQ-9: PHQ-9 Score PHQ-9: Total score 11 12/29/24 15:16 Depression Screening Interpretation: Positive ( denies any si or hi, will have BH speak with pt.) Depression Screening Follow-up: Existing condition Thrive Assessment: Date of Thrive Assessment Date Thrive assessed 12/29/24 12/29/24 15:10 Currently or been in a relationship where the following occur: No concerns reported Coding Level of Care Code Est Pt Level 3 (93447) Diagnoses Physical exam Z00.00 Skin lesion of right leg L98.9 Additional Codes PHQ-9 - 70142 - PHQ-9 Billing: Yes ([id number]) MARIO ALBERTO-7 Assessment Billing - MARIO ALBERTO-7 Assessment Tool: MARIO ALBERTO-7 Assessment 84783 ([id number]) Assessment & Plan Assessment & Plan (1) Physical exam: Code(s): Z00.00 - Encounter for general adult medical examination without abnormal findings Category: Medical (2) Skin lesion of right leg: Code(s): L98.9 - Disorder of the skin and subcutaneous tissue, unspecified Category: Medical Plan . Orders: Orders Complete Blood Count Auto Diff Today Z00.00 - Encounter for general adult medical examination without abnormal findings Comprehensive Lynn. Panel Fast Today Z00.00 - Encounter for general adult medical examination without abnormal findings TSH reflex Free T4 Today Z00.00 - Encounter for general adult medical examination without abnormal findings Lipid Panel Today Z00.00 - Encounter for general adult medical examination without abnormal findings UA CC w/rflx Micro + Cult Today Z00.00 - Encounter for general adult medical examination without abnormal findings Referrals Dermatology Referral L98.9 - Disorder of the skin and subcutaneous tissue, unspecified
[2024-12-29 15:08] VITALS: BP 110/62; PULSE 82; TEMP 36.6; O2SAT 98; BMI 19.2
--- OUTSIDE RECORDS SUMMARY | 2024-12-29 17:04 | XMS_ITS | Encounter Summary ---
Author Organization [employer] Address [address] [place] [address] [address] [place] [address] Care Team Providers Care Range Mechanic Name Role Phone Unavailable Primary Care Provider [...]
--- OUTSIDE RECORDS SUMMARY | 2024-12-29 17:04 | XMS_ITS | Clinical Summary ---
Author Organization [employer] Address [address] [place] [address] [address] [place] [address] Care Team Providers Care Tax Agent Name Role Phone Unavailable Primary Care Provider [...]
--- OUTSIDE RECORDS SUMMARY | 2024-12-29 17:04 | XMS_ITS | Encounter Summary ---
Author Organization [facility] Address [address] [place] [phone] Phone Care Team Providers Care Dental Equipment Technician Name Role Phone Unavailable Primary Care Provider Unavailabl e Encounter Details Date Type Department Care Team (Late st Contact Info) Description 06/07/2017 Conversion Encounter [facility] - [address] [address] Social History Tobacco Use Types Packs/Day Years [...]
--- OUTSIDE RECORDS SUMMARY | 2024-12-29 17:04 | XMS_ITS | Encounter Summary ---
Author Organization [facility] Address [address] [place] [phone] Phone Care Team Providers Care Safety Risk Lead Name Role Phone Unavailable Primary Care Provider Unavailabl e Encounter Details Date Type Department Care Team (Late st Contact Info) Description 02/13/2014 Documentation [facility] [place] [facility] [address] [place] [address] Family Medicine, Physician [facility] [place] [address] Social History Tobacco Use Types Packs/Day Years [...]
--- OUTSIDE RECORDS SUMMARY | 2024-12-29 17:04 | XMS_ITS | Clinical Summary ---
Author Organization [facility] Address [address] [place] [phone] Phone Care Team Providers Care Agricultural Researcher Name Role Phone Unavailable Primary Care Provider [...] patient's age to complete this topic Insurance [facility] NON PCC
--- OUTSIDE RECORDS SUMMARY | 2024-12-29 17:04 | XMS_ITS | Encounter Summary ---
Author Organization [facility] Address [address] [place] [address] Phone Care Team Providers Care Counter Supervisor Name Role Phone Unavailable Primary Care Provider Unavailabl e Encounter Details Date Type Department Care Team (Late st Contact Info) Description 03/31/2010 Documentation [facility] [place] Family Medicine [address] [place] [address] Family Medicine, Physician [place] [address] Social History Tobacco Use Types Packs/Day Years [...]
== END 2024-12-29 15:58 | disposition home or self-care (01) ==
PROVIDERS: PCP Nurse Practitioner Family; Visit Provider Nurse Practitioner Family
DX: Z00.00 Encounter for general adult medical examination without abnormal findings (principal); L98.9 Disorder of the skin and subcutaneous tissue, unspecified

== ENCOUNTER → 2024-12-29 14:54 | Outpatient (BNVA) | payer OTHER, SELFPAY | PROVIDERS: PCP Nurse Practitioner Family; Visit Provider Nurse Practitioner Family | DX: Z00.00 Encounter for general adult medical examination without abnormal findings (principal); L98.9 Disorder of the skin and subcutaneous tissue, unspecified | CPT/HCPCS: 96127; 99212 ==

== ENCOUNTER 2025-10-07 12:14 | Outpatient (AMB) | payer OTHER, SELFPAY ==
[2025-10-07 12:51] VITALS: BP 122/80; PULSE 73; TEMP 36.4; O2SAT 96; BMI 18.9
--- NOTE | 2025-10-07 12:51 | AM.OFFWIN_ITS ---
Intake Vital Signs 10/07/25 12:51 Height 5 ft 8 in Weight 124 lb BMI 18.9 BP 122/80 Blood Pressure Location Rt brachial Position Sitting Pulse 73 Pulse Source Pulse Oximeter Temp 97.6 F Temp Source Oral Pulse Oximetry (%) 96 Oxygen Delivery Method Room Air Intake Visit Reasons: EP Personal matters Intake Note: pt presents with concern for possible pin worms- itchy and discomfort to anal area with yellow/white spots around anus - s/s x1 wk Patient Tobacco Use Status: Never used Tobacco Allergies No Known Allergies Allergy (Verified 10/07/25 12:52) Do you need a note to return to daycare/school/sports/work: No HPI HPI Comments History of Present Illness Details He presents to the office with one week of anal itching Never had similar symptoms before States he is okay during the day but every night symptoms are present He has not tried anything for it He said upset abdomen today but has had normal bowel movements Hasn't noticed worms in stool. No blood noticed He said he looked at anus last night and saw yellow/white dots. 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 Speaking full sentences. Skin: Warm dry throughout Eye: EOMI Cardiac: RRR. No murmur Abdomen: BS present. Non-tender to light and deep palpation. No rebound or guarding. : deferred. MSK: Full ROM extremities. Neurology: Alert. No aphasia or facial droop. Gait without abnormality Psych: Good mood and affect Vital Signs: Last Vital Signs Temp 97.6 F 10/07/25 12:51 Pulse 73 10/07/25 12:51 BP 122/80 10/07/25 12:51 Pulse Ox 96 10/07/25 12:51 Oxygen Delivery Method Room Air 10/07/25 12:51 BMI result Body Mass Index 18.9 Assessment & Plan Assessment & Plan (1) Anal pruritus: Code(s): L29.0 - Pruritus ani Plan: Patient seen and evaluated. Medication to pharmacy Informed pt how to complte scotch tape test Discussed everyone in household should be treated Discussed cleaning clothes/sheets in very hot water Discussed how to take medicine. Patient gave verbal understanding and had no additional questions or concerns at time of discharge All questions answered Medications: New pyrantel pamoate Take 12.5mL x 1 dose. May repeat in 2 weeks with same sode if still symptomatic 625 mg (12.5 mL) PO Q2W 30 mL 0RF 2 doses Coding Level of Care Code Est Pt Level 3 (50454) Diagnoses Anal pruritus L29.0
--- OUTSIDE RECORDS SUMMARY | 2025-10-07 16:10 | XMS_ITS | Encounter Summary ---
Author Organization [facility] Address [address] [place] [id number] Phone Care Team Providers Care Ocean Import Representative Name Role Phone Unavailable Primary Care Provider Unavailabl e Encounter Details Date Type Department Care Team (Late st Contact Info) Description 03/31/2010 Documentation [facility] [place], [place] Family Medicine [address] [place] [address] Family Medicine, Physician [facility] [place] [address] Social History Tobacco Use Types Packs/Day Years [...]
--- OUTSIDE RECORDS SUMMARY | 2025-10-07 16:10 | XMS_ITS | Clinical Summary ---
Author Organization [facility] Address [address] [place] [id number] Phone Care Team Providers Care Staff Veterinarian Name Role Phone Unavailable Primary Care Provider [...] 56 11/16/2020 2:40 PM EST Temperature 36.4 C (97.5 F) 11/16/2020 2:40 PM EST Respiratory Rate - - Oxygen Saturation - [...] 2 - Standard) 2018 Influenza Vaccines (#1) 2025 11/22/2005, 11/20 COVID-19 Vaccine (1 - season) 2025 DTaP,Tdap,and Td Vaccines (7 - Td or [...] patient's age to complete this topic Insurance [facility] NON PCC
--- OUTSIDE RECORDS SUMMARY | 2025-10-07 16:10 | XMS_ITS | Encounter Summary ---
Author Organization [facility] Address [address] [place] [phone] Phone Care Team Providers Care Machined Parts Metal Sprayer Name Role Phone Unavailable Primary Care Provider Unavailabl e Encounter Details Date Type Department Care Team (Late st Contact Info) Description 02/13/2014 Documentation [facility] [place] [address] [place] [address] Family Medicine, Physician [facility] [place] [address] Social History Tobacco Use Types Packs/Day Years [...]
--- OUTSIDE RECORDS SUMMARY | 2025-10-07 16:10 | XMS_ITS | Encounter Summary ---
Author Organization [facility] Address [address] [place] [phone] Phone Care Team Providers Care Emergency Preparedness Coordinator Name Role Phone Unavailable Primary Care Provider Unavailabl e Encounter Details Date Type Department Care Team (Late st Contact Info) Description 06/07/2017 Conversion Encounter [facility] - [address] [address] Social History Tobacco Use Types Packs/Day Years [...]
--- OUTSIDE RECORDS SUMMARY | 2025-10-07 16:11 | XMS_ITS | Clinical Summary ---
Author Organization [employer] Address [address] [facility] [address] [place] [address] Care Team Providers Care Line Supply Name Role Phone Unavailable Primary Care Provider Unavailabl e Allergies No known active allergies Medications No known medications Social History Tobacco Use Types Packs/Day Years Used Date Smoking Tobacco: Some Days Pipe Passive Smoke Exposure: Never Smokeless Tobacco: Never Tobacco Cessation:Ready to Q uit: Not Asked; Counseling Given: Not Answered Alcohol Use Standard Drinks/Week Comments Yes 0 (1 standard drink = 0.6 oz pur e alcohol) Sex and Gender Information Value Date Recorded Sex Assigned at Male 01/16/2023 7:05 AM EDT Legal Sex Male 5:37 PM EDT Gender Identity Male 01/16/2023 7:05 AM EDT Sexual Orientation Don't know 01/16/2023 7: 05 AM EDT Last Filed Vital Signs Vital Sign Reading Time Taken Comments Blood Pressure 108/74 03/23/2025 2:21 PM EDT Pulse 75 03/23/2025 2:21 PM EDT Temperature - - Respiratory Rate - - Oxygen Saturation - - Inhaled Oxygen Concentration - - Weight - - Height - - Body Mass Index - - Plan of Treatment Health Maintenance Due Date Last Done Comments Chlamydia and Gonorrhea Screening 2002 Depression Screening 2002 HIV Screening 2002 Lipid Panel 2002 SDOH Screening 2002 Disability Screening 2002 Alcohol/Substance Use Screening 2014 Family Planning (PISQ) 2017 HPV Vaccines (1 - Male 3-dose series) 2017 Meningococcal B Vaccine (1 of 2 - Standard) 2018 Hepatitis C Screening 2020 Pneumococcal Vaccine: Pediatrics (0 to 5 Years) and At-Risk Patients (6 to 49) Years (1 of 2 - PCV) 2021 01/13/2005, 05/01/2003, 03/09/2003, Additional history exists COVID-19 Vaccine (1 - 2024- season) 2025 DTaP/Tdap/Td Vaccines (7 - Td or Tdap) 06/22/2025 06/22/2015, 12/07/2006, 05/09/2004, Additional history exists Influenza Vaccine (#1) 2025 11/22/2005, 2003 Dental Oral Exam 09/23/2025 03/23/2025, 12/2022, 01/16/2023, Additional history exists Dental Prophylaxis 09/23/2025 03/23/2025, 1 , 01/16/2023, Additional history exists Tobacco Screening 03/23/2026 03/23/2025 Dental X-Ray: Bitewings 03/24/2026 03/23/20 25, 01/16/2023, 10/24/2021, Additional history exists Dental X-Ray: Full Mouth [...] Procedure Name Priority Date/Time Associated Diagnosis Comments Full PROPHYLAXIS - ADULT Routine 025 12:00 PM EDT BITEWINGS - 4 RADIOGRAPHIC IMAGES Routine 03/23/2025 12:00 PM EDT PERIODIC ORAL EVALUATION - ESTABLISHED PATIENT Routine 03/23/2025 12:00 PM EDT PANORAMIC RADIOGRAPHIC IMAGE Routine 08/12/2024 2:00 PM EDT from Last 3 Months or Most Recently Relevant to [id number] DENTAL - HSN FULL (MEDICAID) [place] [address] [place] [address] [place] [address]
--- OUTSIDE RECORDS SUMMARY | 2025-10-07 16:11 | XMS_ITS | Encounter Summary ---
Author Organization [employer] Address [address] [place] [address] [place] [address] Care Team Providers Care Violin Mechanic Name Role Phone Unavailable Primary Care [...]
== END 2025-10-07 13:36 | disposition home or self-care (01) ==
PROVIDERS: PCP Nurse Practitioner Family; Visit Provider Physician Assistant
DX: L29.0 Pruritus ani (principal)

== ENCOUNTER → 2025-10-07 12:14 | Outpatient (BNVA) | payer OTHER, SELFPAY | PROVIDERS: PCP Nurse Practitioner Family; Visit Provider Physician Assistant | DX: L29.0 Pruritus ani (principal) | CPT/HCPCS: 99212 ==